=== PATIENT | female | born 1940 | race Caucasian/White ===

== ENCOUNTER 2021-01-03 21:12 | Emergency (ER) | payer MEDICARE ==
[~2021-01-03 21:12] MED LIST: BUSPIRONE HCL15 MG PO; CARTIA XT300 MG PO; DITROPAN XL10 MG PO; LASIX40 MG PO; LIPITOR40 MG PO; LOPRESSOR50 MG PO; LYRICA25 M1 PO; LYRICA25 MG PO; MOBIC7.5 MG PO; OXYCODON-ACETA1 EAC1 PO; PERCOCET 7.5/321 TAB PO; PREGABALIN25 MG PO; PREGABALIN50 MG PO; TIROSINT25 MCG PO; TRAZODONE 50MG50 MG PO
[2021-01-03 21:50] LABS: BASOPHIL 0.3 % (0-2); EOSINOPHIL 0.3 % (0-7); HCT 43.8 % (37.0-47.0); HGB 14.5 g/dl (12.5-16.0); LYMPHOCYTE 17.6 % (15-48); MCH 33.3 pg (25.0-31.0); MCHC 33.1 g/dL (32.0-36.0); MCV 100.7 fL (78.0-100.0); MONOCYTE 10.6 % (0-12); NEUTROPHIL 70.7 % (41-80); NRBC 0; PLT 330 K/uL (150-400); RBC 4.35 M/uL (4.20-5.40); RDW 12.7 % (11.5-14.0); WBC 12.6 K/uL (4.0-10.5)
[2021-01-03 22:06] LABS: BUN/CREAT RATIO (CALC) 20.9 RATIO; CREATININE 0.67 mg/dL (0.51-0.95); POTASSIUM 3.1 mmol/L (3.5-5.1)
[2021-01-03 22:28] LABS: LACTIC ACID 1.4 mmol/L (0.4-1.9)
== END 2021-01-04 00:45 | disposition home or self-care (01) ==
LOC: FER 21:12
PROVIDERS: Nurse Practitioner Family
DX: K59.00 Constipation, unspecified (principal); I10 Essential (primary) hypertension; I25.10 Atherosclerotic heart disease of native coronary artery without angina pectoris
CPT/HCPCS: 36415; 74022; 80048; 83605; 85025; 87040; 87088; Q9967